=== PATIENT | female | born 1965 | race Caucasian/White ===

== ENCOUNTER 2018-03-01 06:47 | Day surgery (SDC) | payer OTHER ==
--- NOTE | 2018-02-20 20:37 | HP ---
HISTORY AND PHYSICAL: DATE OF ADMISSION/SURGERY: 03/01/18 SURGEON: Elaina Murray MD * (DICTATED BY TERESA LYLE) PROCEDURE: Left knee arthroscopy with partial meniscectomy, possible chondroplasty, possible synovectomy. CHIEF COMPLAINT: Left knee pain. HISTORY OF PRESENT ILLNESS: Ms. Connolly is a 52-year-old female with complaints of left knee pain. An MRI confirms a medial meniscus tear and she has elected to proceed with left knee arthroscopy. PAST MEDICAL HISTORY: GERD, hypertension, asthma, and breast cancer. PAST SURGICAL HISTORY: Hysterectomy, lumpectomy, mastectomy, and D and C. CURRENT MEDICATIONS: 1. Iron. 2. Triamterene/hydrochlorothiazide 37.5/25 mg daily. 3. Omeprazole 40 mg daily. 4. Atenolol 50 mg daily. 5. Vitamin D2. 6. Desloratadine 5 mg daily. 7. Montelukast sodium 10 mg daily. ALLERGIES: No known drug allergies. FAMILY HISTORY: Diabetes and bladder cancer. SOCIAL HISTORY: A 52-year-old female, lives with her and daughter. She does not smoke, use drugs or alcohol. REVIEW OF SYSTEMS: A complete 14-point review of systems was reviewed with the patient. It was positive for a thyroid goiter, GERD, and asthma. PHYSICAL EXAMINATION GENERAL: She is well developed, well nourished, in no acute distress. VITAL SIGNS: She stands 5 feet 7 inches tall, weighs 132 pounds. Her blood pressure is 116/70, and heart rate is 70. HEENT: Normocephalic, atraumatic. NECK: Supple. No palpable lymph nodes. PULMONARY: The lungs are clear to auscultation bilaterally. CARDIO: Regular rate and rhythm. Strong S1, S2. ABDOMEN: Soft, nontender, and nondistended. MUSCULOSKELETAL: Left lower extremity: The skin is intact. There are no open wounds or abrasions. There is a moderate joint effusion, some tenderness over the medial joint line, positive Denise's, positive Apley's. Negative Bryan. 2+ dorsalis pedis pulses. She has intact sensation and her lower extremity muscle group strengths are intact at 5/5. Range of motion is 5 to 110 degrees of flexion. NEUROLOGICAL: She is alert and oriented x3. ASSESSMENT AND PLAN: Ms. Connolly is a 52-year-old female with complaints of left knee pain. An MRI confirms a medial meniscus tear and she has elected to proceed with left knee arthroscopy with partial meniscectomy, possible chondroplasty, possible synovectomy. The surgery is scheduled for 03/01/[address] Murray discussed the risks and benefits of the surgery at today's visit and all of her questions were answered. She will follow up with Dr. Murray 2 weeks after the surgery. TERESA LYLE [id number]/[facility] #: [id number] DARBY
[~2018-03-01 06:47] MED LIST: Buffered Lidocaine 0.9% SYRIN* 5 ML/SYR SYRINGE INTRADERM ONE; Dexamethasone IV* 4 MG/ML 1 ML (4 MG) IV SLOW PU ONE; Famotidine IV* 10 MG/ML 2 ML (20 mg) IV ONE
[2018-03-01] MEDS ORDERED: methylPREDNISolone ACETATE 80* 80 MG/ML 1 ML VIAL ONE (06:59)
[2018-03-01] MEDS ORDERED: EPINEPHRINE 1 MG/ML 1 ML VIAL ONE ×2 (06:59→08:48)
[2018-03-01] MEDS ORDERED: Bupivacaine 0.25% SDV PF* 10 ML VIAL INJ ONE (06:59)
[2018-03-01] MEDS ORDERED: Dexamethasone IV* 4 MG/ML 1 ML (4 MG) ONE (07:08)
[2018-03-01] MEDS ORDERED: Famotidine IV* 10 MG/ML 2 ML (20 mg) ONE (07:08)
[2018-03-01] MEDS ORDERED: ceFAZolin 2 GM in NS PREMIX(*) 2 GM/100 ML BAG IVPB ONE (07:09)
[2018-03-01] MEDS ORDERED: Midazolam* 1 MG/ML 5 ML VIAL (5 MG) ONE (07:44)
[2018-03-01] MEDS ORDERED: Phenylephrine INJ* 10 MG/ML 1 ML VIAL (10 MG) ONE (07:44)
[2018-03-01] MEDS ORDERED: Propofol* 10 MG/ML 20 ML BTL IV PUSH ONE (07:44)
[2018-03-01] MEDS ORDERED: Ondansetron INJ* 2 MG/ML VIAL ONE (07:44)
[2018-03-01] MEDS ORDERED: Ketorolac INJ* 30 MG/ML 1 ML VIAL ONE (07:44)
[2018-03-01] MEDS ORDERED: Chloroprocaine 2%* 20 ML VIAL ONE (07:45)
[2018-03-01] MEDS ORDERED: Lidocaine 2% PF * 5 ML VIAL ONE (08:25)
[2018-03-01] MEDS ORDERED: Ondansetron INJ* 2 MG/ML VIAL IV PRN (08:48)
[2018-03-01] MEDS ORDERED: Scopolamine 1.5 mg* PATCH TRANSDERM PRN (08:48)
[2018-03-01] MEDS ORDERED: HYDROmorphone INJ1* 1 MG/ML SYRINGE IV PRN (08:48)
[2018-03-01] MEDS ORDERED: Naloxone* 0.4 MG/ML 1 ML VIAL IV PRN (08:48)
[2018-03-01] MEDS ORDERED: oxyCODONE/Acetamin 5/325 MG* TAB PO PRN (08:48)
[2018-03-01] MEDS ORDERED: DiMENhydriNATE IV* 50 MG/ML VIAL IV PUSH PRN (08:48)
[2018-03-01] MEDS ORDERED: fentaNYL* 50 MCG/ML 2 ML VIAL (100 MCG VIAL) ONE ×2 (09:52→10:02)
[2018-03-01] MEDS: fentaNYL* 50 MCG/ML 2 ML VIAL (100 MCG VIAL) IV PRN ×3 (09:53→10:11)
[2018-03-01] MEDS ORDERED: oxyCODONE/Acetamin 5/325 MG* TAB ONE (10:03)
[2018-03-01 15:19] VITALS: BP 146/98
--- NOTE | 2018-03-02 16:25 | OP ---
AMENDED REPORT NOW INCLUDES DATE OF SURGERY AND CORRECTED DATE OF DATE OF OPERATION: 03/01/18. DATE OF : 65 SURGEON: Elaina Murray MD. HAY BALER: TERESA Shultz. Ms. Melara did help throughout the procedure with preparation of the leg, wound retraction, manipulation of the knee, and wound closure. ANESTHESIOLOGIST: Dr. Chaudhry. ANESTHESIA: General. PRE-OP DIAGNOSIS: Left knee lateral meniscal tear and [id number]-[id number] osteoarthritis. POST-OP DIAGNOSIS: Left knee lateral meniscal tear, medial meniscus tear, severe degenerative osteoarthritis. OPERATIVE PROCEDURE: Left knee arthroscopy with partial medial meniscectomy and partial lateral meniscectomy and lateral compartment chondroplasty. ESTIMATED BLOOD LOSS: Less than 25 cc. COMPLICATIONS: None. SPECIMEN: None. BRIEF HISTORY/INDICATION: Ms. Connolly is a 52-year-old female who developed acute on chronic knee pain in December. She developed mechanical symptoms. She had known arthritis but MRI was ordered was because of the mechanical symptoms and increase in pain. Meniscal tear of the lateral meniscus was noted. The patient failed conservative treatment. She wished to proceed with left knee arthroscopy with partial meniscectomy, possible chondroplasty, possible synovectomy. Informed consent was obtained from the patient. She understood the risk of surgery included, but were not limited to bleeding, infection, damage to nearby structures, continued pain, need for further surgery, stroke, heart attack, blood clot and . She wished to proceed. INTRAOPERATIVE FINDINGS: Intraoperatively, the patient was noted to have displaced degenerative type tear of the anterior meniscus with displacement into the joint of the anterior medial meniscus. This was displaced into the joint. She was found to have a complex tear involving a parrot peak type tear in the posterior two-thirds of the lateral meniscus. This involved the white- red zone mainly and some red-red zone. She was noted to have a grade 3 and 4 Outerbridge cartilage changes in the lateral and patellofemoral compartment with a significant amount of exposed subchondral bone and complete lack of cartilage in the lateral compartment. She has significant osteophytes noted in the patellofemoral compartment as well. DESCRIPTION OF PROCEDURE: Ms. Connolly was identified in the preanesthesia unit. Her left lower extremity was marked as the correct operative side. Informed consent was signed and placed in the chart. The patient was taken to the operating room and placed under general anesthesia. Left lower extremity was prepped and draped in the usual sterile fashion. Preop time-out was made to correctly identify the patient's side and site. Appropriate perioperative antibiotics were given within 1 hour of incision. A 0.5 cm standard anterolateral portal incision was made with a 15 blade, carried down to the capsule. Trocar was introduced. As soon as the light and water sources were turned on, there was immediate visualization of the suprapatellar pouch. Suprapatellar pouch showed no significant abnormalities. There was a significant osteophyte in the patellofemoral compartment. There were grade 3 and 4 Outerbridge cartilage changes in the patellofemoral compartment. Medial gutters showed loose body or plica. Medial compartment showed grade 2 cartilage changes and a degenerative, radial type tear in the anterior portion of the medial meniscus. This was displaced anteriorly into the joint. ACL and PCL appeared to be intact. The knee was placed in figure-of -four position. There was a complex, severe tear of the lateral meniscus involving the posterior two-thirds. This was a parrot peak type tear displaced into the joint. There was exposed subchondral bone along the majority of the lateral femoral condyle and tibial plateau. These were grade 3 and 4 Outerbridge cartilage changes. Lateral gutter showed no loose body or plica. Under direct visualization, a medial portal incision was made with a 10 blade. A probe was introduced and a second tour of the knee joint was performed. No additional findings were noted. A shaver and straight biter were used perform partial medial meniscectomy anteriorly and mainly in the white-red zone. A smooth border of the medial meniscus was obtained. The knee was then placed in a [id number] position. Any cartilage flaps were carefully smoothed using radiofrequency ablation wand and shaver. A shaver and straight biter were then used to perform partial lateral meniscectomy until a smooth border meniscus was obtained. This was in the white- red zone. A smooth border was noted and the probe was used to ensure there were no hidden flaps or tears. The knee was copiously irrigated with sterile saline. The instruments were removed. Incisions were closed using 3-0 nylon suture. Intraarticular injection of 80 mg Depo-Medrol and 6 cc of 0.25% Marcaine was placed in the knee joint. The patient's incisions were covered using Xeroform, 4x4s, and Webril. The patient's anesthesia was reversed without difficulty. She was taken to the PACU in stable condition. Intended weightbearing will be weightbearing as tolerated. Intended DVT prophylaxis will be aspirin. [id number]/[facility] #: [id number] MTDD
== END 2018-03-01 11:10 | disposition home or self-care (01) ==
LOC: OR 06:47
PROVIDERS: ATTEND Orthopaedic Surgery Adult Reconstructive Orthopaedic Surgery
DX: S83.282A Other tear of lateral meniscus, current injury, left knee, initial encounter (principal); S83.242A Other tear of medial meniscus, current injury, left knee, initial encounter; X58.XXXA Exposure to other specified factors, initial encounter; Y92.9 Unspecified place or not applicable; E11.9 Type 2 diabetes mellitus without complications; K21.9 Gastro-esophageal reflux disease without esophagitis; J45.909 Unspecified asthma, uncomplicated; Z85.3 Personal history of malignant neoplasm of breast; E66.9 Obesity, unspecified
CPT/HCPCS: A9270-GY; J0690; J1040; J1100; J1885; J2250; J2400; J2405; J2704; J3010; J3490

== ENCOUNTER 2018-08-30 06:45 | Inpatient (IN) | payer OTHER ==
--- NOTE | 2018-08-17 13:23 | HP ---
HISTORY AND PHYSICAL: DATE OF SURGERY: 08/30/18 DATE OF OFFICE VISIT: 08/17/18 SURGEON: Elaina Murray MD * (DICTATED BY TERESA LYLE) PROCEDURE: Left total knee arthroplasty. CHIEF COMPLAINT: Left knee pain. HISTORY OF PRESENT ILLNESS: Ms. Connolly is a 53-year-old female with continued complaints of left knee pain. She has failed conservative treatment and elected to proceed with a left total knee arthroplasty. PAST MEDICAL HISTORY: 1. Asthma. 2. Breast cancer. 3. GERD. 4. Hypertension. 5. Depression. 6. Anxiety. 7. Thyroid goiter. PAST SURGICAL HISTORY: 1. Hysterectomy. 2. Mastectomy. 3. Left knee arthroscopy. CURRENT MEDICATIONS: 1. Tramadol 50 mg every 6 hours as needed. 2. Montelukast sodium 10 mg a day. 3. Desloratadine 5 mg a day. 4. Vitamin D 50,000 units a month. 5. Atenolol 50 mg daily. 6. Omeprazole 40 mg a day. 7. Triamterene/hydrochlorothiazide 37.5/25 mg a day. 8. Iron 65 mg a day. 9. Albuterol as needed. 10. Tums as needed. ALLERGIES: No known drug allergies. FAMILY HISTORY: Diabetes, cancer, and hypertension. SOCIAL HISTORY: She is a 53-year-old female. She lives with her . She does not smoke, use drugs, or alcohol. REVIEW OF SYSTEMS: A complete 14-point review of systems was reviewed with the patient and was positive for GERD, asthma, and a thyroid goiter. She denies history of DVT, PE, hepatitis, HIV, or anesthesia problems. PHYSICAL EXAMINATION GENERAL: She is well developed, well nourished, in no acute distress. VITAL SIGNS: She stands 5 feet 7 inches tall, weighs 230 pounds. Blood pressure is 148/90, and heart rate 60. HEENT: Normocephalic, atraumatic. NECK: Supple. No palpable lymph nodes. PULMONARY: Lungs are clear to auscultation bilaterally. CARDIAC: Regular rate and rhythm. Strong S1 and S2. ABDOMEN: Soft, nontender, and nondistended. MUSCULOSKELETAL: Left lower extremity, the skin is intact. There is no open wound or abrasion. There is a moderate effusion to the left knee. There is a 15 degrees valgus deformity with MCL laxity, this can be corrected by 5 degrees. Range of motion is 10 to 120 degrees of flexion with patellofemoral crepitus. She has 2+ dorsalis pedis pulses. Intact sensation. Her lower extremity muscle group strengths are intact at 5/5. NEUROLOGIC: She is alert and oriented x3. ASSESSMENT AND PLAN: Ms. Connolly is a 53-year-old female with end-stage osteoarthritis of the left knee. She has failed conservative treatment and elected to proceed with a left total knee arthroplasty. The surgery is scheduled for 08/30/[address] Murray discussed the risks and benefits of the surgery on today's visit and all of her questions were answered. She will follow up with Dr. Murray 2 weeks after the surgery. TERESA LYLE [id number]/[facility] #: [id number] DARBY
[~2018-08-30 06:45] MED LIST changes: +Acetaminophen TAB* 325 MG PO ONE; -Buffered Lidocaine 0.9% SYRIN* 5 ML/SYR SYRINGE INTRADERM ONE; +Buffered Lidocaine 1% SYRIN* 1 ML/SYRINGE INTRADERM ONE; -Famotidine IV* 10 MG/ML 2 ML (20 mg) IV ONE; +Famotidine TAB* 20 MG PO ONE; +Gabapentin CAP(*) 300 MG PO ONE; +Lactated Ringers 1000 ML Bag* 1,000 ML IV SCH; +Tranexamic Acid 1,000 MG in NS 0.9% 50 ML* (outpatient use) IV SCH; +celeCOXIB CAP* 200 MG PO ONE
[2018-08-30] MEDS ORDERED: ROPIVACAINE 5 MG/ML 30 ML BTL (0.5%) ONE ×2 (06:55→07:58)
[2018-08-30] MEDS ORDERED: Gabapentin CAP(*) 300 MG ONE (07:08)
[2018-08-30] MEDS ORDERED: Dexamethasone IV* 4 MG/ML 1 ML (4 MG) ONE (07:08)
[2018-08-30] MEDS ORDERED: celeCOXIB CAP* 100 MG ONE (07:08)
[2018-08-30] MEDS ORDERED: ceFAZolin 2 GM in NS PREMIX(*) 2 GM/100 ML BAG IVPB ONE (07:09)
[2018-08-30] MEDS ORDERED: Famotidine IV* 10 MG/ML 2 ML (20 mg) ONE (07:09)
[2018-08-30] MEDS ORDERED: Acetaminophen TAB* 325 MG ONE (07:09)
[2018-08-30] MEDS ORDERED: Famotidine TAB* 20 MG ONE (07:28)
[2018-08-30] MEDS ORDERED: hydrALAZINE IV* 20 MG/ML VIAL ONE (07:32)
[2018-08-30] MEDS ORDERED: Levalbuterol 0.63MG/3ML NEB* UNIT OF USE INH ONE ×2 (07:39→07:41)
[2018-08-30] MEDS ORDERED: hydrALAZINE IV* 20 MG/ML VIAL IV SLOW PU ONE (07:41)
[2018-08-30] MEDS ORDERED: Midazolam* 1 MG/ML 2 ML VIAL (2 MG) ONE (07:48)
[2018-08-30] MEDS ORDERED: fentaNYL* 50 MCG/ML 2 ML VIAL (100 MCG VIAL) ONE (07:48)
[2018-08-30] MEDS ORDERED: Propofol* 10 MG/ML 20 ML BTL ONE ×2 (07:48→09:32)
[2018-08-30] MEDS ORDERED: Lidocaine 1%* 5 ML VIAL ONE (07:58)
[2018-08-30] MEDS ORDERED: Propofol* 500 MG/50 ML BTL ONE (08:38)
[2018-08-30] MEDS ORDERED: KETAMINE HCL* 50 MG/ML 10 ML VIAL ONE (08:47)
[2018-08-30] MEDS ORDERED: oxyCODONE TAB* 5 MG TAB PO PRN (09:19)
[2018-08-30] MEDS ORDERED: HYDROmorphone INJ1* 1 MG/ML SYRINGE IV PRN (09:19)
[2018-08-30] MEDS ORDERED: Naloxone* 0.4 MG/ML 1 ML VIAL IV PRN (09:19)
[2018-08-30] MEDS ORDERED: Ondansetron INJ* 2 MG/ML VIAL IV PRN ×2 (09:19→10:43)
[2018-08-30] MEDS ORDERED: Acetaminophen IV 1GM/100ML * 1,000 MG/100 ML VIAL IVPB ONE (09:19)
[2018-08-30] MEDS ORDERED: DiMENhydriNATE IV* 50 MG/ML VIAL IV PUSH PRN (09:19)
[2018-08-30] MEDS ORDERED: Ketorolac INJ* 30 MG/ML 1 ML VIAL IV PRN (09:19)
[2018-08-30] MEDS ORDERED: fentaNYL* 50 MCG/ML 2 ML VIAL (100 MCG VIAL) IV PRN (09:19)
[2018-08-30] MEDS ORDERED: Ondansetron TAB* 4 MG PO PRN (10:43)
[2018-08-30] MEDS ORDERED: Polyethylene Glycol 3350* 17 GM PACKET PO PRN (10:43)
[2018-08-30] MEDS ORDERED: Bisacodyl SUPP* 10 MG SUPP PR PRN (10:43)
[2018-08-30] MEDS ORDERED: Magnesium Hydroxide LIQ* 30 ML UDC PO PRN (10:43)
[2018-08-30] MEDS ORDERED: Morphine INJ* 2 MG/ML 1 ML SYRINGE (TWO MG - NEW SYRINGE VERSION) IV PRN (10:43)
[2018-08-30] MEDS ORDERED: traMADol TAB* 50 MG PO PRN (10:43)
[2018-08-30] MEDS ORDERED: Cyclobenzaprine TAB* 10 MG PO PRN (10:43)
[2018-08-30] MEDS ORDERED: oxyCODONE/Acetamin 5/325 MG* TAB PO PRN (10:43)
[2018-08-30] MEDS ORDERED: diPHENhydraMINE IV* 50 MG/ML 1 ml VIAL (BENADRYL) IV PRN (10:43)
[2018-08-30] MEDS: Lactated Ringers 1000 ML Bag* 1,000 ML IV SCH ×2 (13:26→23:42)
--- NOTE | 2018-08-30 13:45 | PN ---
Progress Note - Progress Note Date of Service: 08/30/18 Note: Patient seen at bedside, POD 0 LTK, She is alert and oriented. Feeling a little dizzy. Sensation intact to light touch LLE. +DF left ankle.
[2018-08-30] MEDS: Acetaminophen TAB* 325 MG PO SCH ×2 (14:18→22:14)
[2018-08-30] MEDS: oxyCODONE TAB* 5 MG TAB PO PRN ×2 (15:33→20:29)
[2018-08-30] MEDS: ceFAZolin 1 GM ADVAN(*) 1 GM in NS 0.9% 50 ML* 50 ML IVPB SCH (17:03)
--- NOTE | 2018-08-30 20:23 | CONS ---
CONSULTATION REPORT: DATE OF CONSULT: 08/30/18 REQUESTING PHYSICIAN: Dr. Elaina Murray. REASON FOR CONSULT: Co-management of chronic medical conditions. HISTORY OF PRESENT ILLNESS: Leeanna Connolly is a 53-year-old female with past medical history significant for hypertension and asthma who failed outpatient conservative treatment for her left knee osteoarthritis and elected to proceed with left total knee arthroplasty. She had surgery this morning and is feeling slightly nauseous today at the time of visit. She, otherwise, is feeling well. Denies chest pain, shortness of breath, and headache. The patient denies constipation, diarrhea, and abdominal pain. She has not vomited. She is currently eating and is willing to utilize Zofran to manage her nausea. PAST MEDICAL HISTORY: 1. Hypertension. 2. Asthma. 3. GERD. 4. Anxiety. 5. Depression. 6. Thyroid goiter. 7. Breast cancer, status post mastectomy. PAST SURGICAL HISTORY: 1. Hysterectomy. 2. Mastectomy. 3. Left knee arthroscopy and total left knee arthroplasty. FAMILY HISTORY: The patient's father is living at age 75; he has history of bladder cancer, diabetes, and hypertension. The patient's mother is living at age 75; she has history of appendiceal cancer, diabetes, hypertension. She has 2 brothers with hypertension. SOCIAL HISTORY: The patient lives with her . She does not smoke and was never a smoker. She denies the use of illicit drugs and alcohol. ALLERGIES: No known drug allergies. HOME MEDICATIONS: 1. Montelukast 10 mg a day. 2. Desloratadine 5 mg a day. 3. Vitamin D 50,000 units a month. 4. Atenolol 50 mg a day. 5. Omeprazole 40 mg a day. 6. Triamterene/hydrochlorothiazide 37.5 mg/25 mg a day. 7. Iron 65 mg a day. 8. Albuterol inhaler p.r.n. 9. Tums p.r.n. REVIEW OF SYSTEMS: An 11-system review of systems was completed and all pertinent positives are listed in the HPI. All others are negative. PHYSICAL EXAM: General: The patient is sitting upright in the hospital bed, appearing comfortable and in no acute distress. HEENT: Head is normocephalic and atraumatic. Eyes are PERRL and sclerae anicteric. Mouth: Mucous membranes are moist. Neck is supple. Range of motion is within normal limits. Cardiac: Regular rate and rhythm. No murmurs, rubs, or gallops. Respiratory : Lungs with minimum crackles in bilateral bases. Otherwise, lungs are clear. Abdomen: Soft, nontender, nondistended. Extremities: Left knee in wraps and brace. There is no clubbing, edema. Neurologic: The patient is alert and oriented x3. No focal deficits. Psych: mood and affect are euthymic DIAGNOSTIC STUDIES/LAB DATA: Glucose on 08/30/18 is 123. ASSESSMENT AND PLAN: The patient is a 53-year-old white female with significant past medical history of hypertension, asthma, gastroesophageal reflux disease who is status post left total knee arthroplasty. Hospital medicine is consulted for co-management of chronic medical conditions. 1. Hypertension. The patient's blood pressure has been stable since surgery. Continue home atenolol and triamterene/hydrochlorothiazide. Continue to monitor blood pressure. 2. Asthma. Continue home montelukast and home albuterol p.r.n. 3. Gastroesophageal reflux disease. Continue omeprazole. 4. Depression and anxiety are stable. The patient does not take home medicine. No psychiatric concerns. 5. Thyroid goiter is stable. The patient does not take medicine. It is likely subclinical hypothyroidism. 6. DVT prophylaxis. Per Orthopedic Surgery. 7. Disposition. Per Orthopedic Surgery. TIME SPENT: Time spent on this consultation was approximately 30 minutes. Approximately half of this was spent at bedside. My attending physician, Dr. Dai Waterman, agrees with this assessment and plan. Thank you for allowing us to participate in the care of this patient. We will follow along during this patient's admission. TERESA SAINI [id number]/[facility] #: [id number] DARBY
[2018-08-30] MEDS: Magnesium Hydroxide LIQ* 30 ML UDC PO SCH (20:30)
[2018-08-30] MEDS: Docusate CAP* 100 MG PO SCH (20:30)
--- NOTE | 2018-08-30 20:56 | OP ---
DATE OF OPERATION: 08/30/18 - ROOM #342 DATE OF : 65 ATTENDING SURGEON: Elaina Murray MD. FINANCIAL SALES CONSULTANT: TERESA Shultz. Ms. Melara did help throughout the procedure with preparation of the leg, wound retraction, manipulation of the knee, and wound closure. ANESTHESIOLOGIST: Dr. Song. ANESTHESIA: Spinal. PRE-OP DIAGNOSIS: Severe end-stage degenerative osteoarthritis of the left knee joint. POST-OP DIAGNOSIS: Severe end-stage degenerative osteoarthritis of the left knee joint. OPERATIVE PROCEDURE: Left total knee arthroplasty. TOURNIQUET TIME: 46 minutes. COMPLICATIONS: None. ESTIMATED BLOOD LOSS: 200 cc. SPECIMEN: Bone and cartilage from the left knee joint sent to Pathology. HARDWARE USED: This is cemented Feldman [employer] Nephew total knee arthroplasty hardware. For the femur, a size left 5 narrow posterior stabilized Legion Oxinium femoral component. For the tibia, size 3 left Tiffanie II tibial baseplate. For the insert, a 13 mm posterior stabilized articular insert and for the patella, a 29 mm 3-peg all-poly patella 7.5 thickness. BRIEF HISTORY/INDICATION: Ms. Connolly is a 53-year-old female who has suffered with left knee pain for many years. She failed conservative treatment with antiinflammatories, pain medications, intraarticular injections, physical therapy, brace wear, and arthroscopy. Radiographs showed [id number] arthritis and she started to develop severe valgus deformity. Due to continued pain and decreased quality of life, she elected to undergo left total knee arthroplasty. Informed consent was obtained from the patient. She understood the risks of surgery included, but were not limited to, bleeding, infection, damage to nearby structures, continued pain, need for further surgery, intraoperative fracture, nerve palsy, hardware failure or loosening, knee stiffness, loss of motion, stroke, heart attack, blood clot, and . She wished to proceed. INTRAOPERATIVE FINDINGS: Intraoperatively, the patient was noted to have preop valgus deformity of 15 degrees. This was corrected to anatomic. She was noted to have some MCL laxity that appeared to be chronic. She was noted to have severe end- stage arthritis with complete cartilage loss in the lateral and patellar compartments. DESCRIPTION OF PROCEDURE: Ms. Connolly was identified in the preanesthesia unit. Her left lower extremity was marked as the correct operative site. Informed consent was signed and placed in the chart. The patient was taken to the operating room and placed under anesthesia. A Estrella catheter was placed. Tourniquet was placed on the left thigh. Left lower extremity was prepped and draped in the usual sterile fashion. A preop time-out was made to correctly identify the patient, side, and site. Appropriate perioperative antibiotics were given within 1 hour of incision. Tourniquet was inflated and total tourniquet time for this procedure was 46 minutes. A midline incision was made with a 10-blade and carried down to the extensor mechanism. A new 10-blade was used to make a standard medial parapatellar arthrotomy. Patella was subluxed laterally. Electrocautery was used to subperiosteally elevate soft tissue off the superomedial tibia to the midsagittal plane. The knee was flexed up. The anterior horn of the lateral meniscus and ACL were sharply released. A drill was used to enter the distal femur. Intramedullary distal femoral cutting guide was pinned on the distal femur. Oscillating saw was used to make the distal femoral cut. Next, the external rotation guide was pinned on the distal femur. The distal femur was sized to a size 5. Size 5 multi-cutting jig was pinned on the distal femur. Oscillating saw was used to make the appropriate chamfer cuts. PCL was completely released. Tibia was subluxed anteriorly. Extramedullary tibial cutting guide was pinned on the proximal tibia. Oscillating saw was used to make the proximal tibial cut perpendicular to the mechanical axis of the tibia. The bone was carefully removed. The knee was brought out into full extension. The knee had full extension with good medial and lateral ligament balancing. The patient's baseline MCL laxity was noted. The curved osteotome was used to remove any posterior osteophytes. Tibial tray and drop vanesa were placed and confirmed a satisfactory tibial cut. A size 5 left narrow femoral trial was impacted onto the distal femur and had excellent fit and stability. The box for the posterior stabilized implant was prepared using a reamer and box-cut osteotome. Size 3 tibial tray trial with an 11 mm insert trial was placed and the knee was taken through a range of motion. The knee had full extension to 130 degrees of flexion with satisfactory patellofemoral tracking. The patella was everted; 7 mm of patellar bone and cartilage were carefully removed using an oscillating saw. Patella was sized to a size 29. Three peg holes were drilled through the size 29 guide. Size 29 trial patella with 7.5 thickness was placed and the knee was taken through a range of motion. There was satisfactory patellofemoral tracking. All trials were carefully removed. The tibia was subluxed anteriorly and sized to a size 3. Proximal tibia was prepared using a size 3 keel punch. All bony cut surfaces were copiously irrigated with sterile saline and dried. Final implants were cemented into place starting with the tibia, followed by the femur and last the patella. A 13 mm insert trial was placed while the knee was brought out into full extension. Tourniquet was turned down. Electrocautery was used to obtain meticulous hemostasis. The knee was copiously irrigated with sterile saline. Once the cement was fully cured, the insert trial was removed. Any excess cement was removed from around the capsule and hardware. Final insert chosen was a 13 mm posterior stabilized articular insert, size 3 to 4. This was locked into position on the tibial tray. Stability of the insert was checked and rechecked and noted to be stable. The extensor mechanism was closed using interrupted #1 Vicryl. The rest of the incision was closed in a layered fashion using 0 and 2-0 Vicryls. Skin was closed using running 3-0 nylon suture. Sterile Xeroform, 4x4s, and Webril were used to cover the incision. Trent wrap and cold pack were placed over this. The patient' s anesthesia was reversed without difficulty. She was taken to the PACU in stable condition. Intended weightbearing will be weightbearing as tolerated. Intended DVT prophylaxis will be Eliquis. [id number]/[facility] #: [id number] [facility]
[2018-08-31] MEDS: ceFAZolin 1 GM ADVAN(*) 1 GM in NS 0.9% 50 ML* 50 ML IVPB SCH ×2 (01:01→08:25)
[2018-08-31] MEDS: Acetaminophen TAB* 325 MG PO SCH ×3 (05:53→22:02)
[2018-08-31] MEDS: oxyCODONE/Acetamin 5/325 MG* TAB PO PRN ×3 (05:53→15:28)
[2018-08-31 06:04] LABS: Hematocrit 34 % (33-41); Hemoglobin 11.4 g/dL (12.0-16.0); Mean Platelet Volume 9.4 fL (7.4-10.4); Platelet Count 172 10^3/uL (150-450)
[2018-08-31 06:36] LABS: BUN/Creatinine Ratio 24.2 (8-20); Calcium 8.9 mg/dL (8.6-10.3); EGFR African American 113.4 (>60); EGFR Non-African American 93.7 (>60); Potassium 3.4 mmol/L (3.5-5.0)
[2018-08-31] MEDS: Potassium Chlor TAB* 20 MEQ TAB.ER PO SCH ×2 (08:25→20:38)
[2018-08-31] MEDS: Pantoprazole TAB * 40 MG TAB PO SCH (08:25)
[2018-08-31] MEDS: Apixaban* 2.5 MG TAB PO SCH ×2 (08:25→20:38)
[2018-08-31] MEDS: oxyCODONE TAB* 5 MG TAB PO PRN ×3 (08:25→18:18)
[2018-08-31] MEDS: Cetirizine* 10 MG TAB PO SCH (08:25)
[2018-08-31] MEDS: Triamterene/HCTZ 37.5-25 MG* CAP PO SCH (08:25)
[2018-08-31] MEDS: Atenolol TAB* 50 MG PO SCH (08:25)
[2018-08-31] MEDS: Docusate CAP* 100 MG PO SCH ×2 (08:28→20:38)
[2018-08-31] MEDS: Magnesium Hydroxide LIQ* 30 ML UDC PO SCH ×2 (09:14→20:38)
--- NOTE | 2018-08-31 11:26 | PN ---
Progress Note - Progress Note Date of Service: 08/31/18 SOAP: Subjective: []Patient seen OOB in chair. Feeling wiped out but denies SOB, CP, palpitations. Hopes to go home tomorrow. Objective: [] Vital Signs Temp 97.9 F 08/31/18 07:42 Pulse 63 08/31/18 07:42 Resp 18 08/31/18 09:52 BP 133/71 08/31/18 07:42 Pulse Ox 96 08/31/18 08:00 Intake & Output 08/30/18 08/31/18 08/31/18 18:59 06:59 18:59 Intake Total 1800 2190 Output Total 675 300 Balance 1125 1890 Weight 228 lb 9.6 oz Intake: IV Fluids 1700 990 LR 990 lr 1700 Oral 100 900 Estrella Irrigate Amount 300 Output: Estrella 425 300 Estimated Blood Loss 250 Laboratory Results - last 24 hr 08/31/18 08/31/18 05:40 05:40 Hgb 11.4 L Hct 34 Plt Count 172 MPV 9.4 Sodium 139 Potassium 3.4 L Chloride 106 Carbon Dioxide 28 Anion Gap 5 BUN 16 Creatinine 0.66 Est GFR ( Amer) 113.4 Est GFR (Non-Af Amer) 93.7 BUN/Creatinine Ratio 24.2 H Glucose 166 H Calcium 8.9 Left knee dressings are dry and intact calf NT +DF left ankle sensation and circulation intact distally Assessment: []s/p LTK POD #1 Plan: []PT/OT WBAT LLE Eliquis 2.5 BID DVT proph Dressing change 09/01 Possible d/c home 09/01
--- NOTE | 2018-08-31 17:26 | PN ---
Subjective Date of Service: 08/31/18 Interval History: Pt is feeling well. She states the pain in her knee currently is worse than it has been but overall her pain has been adequately controlled. No SOB. No BM yet. Objective Active Medications: Acetaminophen (Tylenol Tab*) 975 mg PO Q8HR [facility] Last Admin: 08/31/18 12:55 Dose: Not Given Apixaban (Eliquis*) 2.5 mg PO BID [facility] Last Admin: 08/31/18 08:25 Dose: 2.5 mg Atenolol (Tenormin Tab*) 50 mg PO QAM [facility] Last Admin: 08/31/18 08:25 Dose: 50 mg Bisacodyl (Dulcolax Supp*) [address] DAILY PRN PRN Reason: constipation Cetirizine HCl (Zyrtec*) 10 mg PO QAM [facility]; Protocol Last Admin: 08/31/18 08:25 Dose: 10 mg Cyclobenzaprine HCl (Flexeril Tab*) 10 mg PO TID PRN PRN Reason: SPASMS Diphenhydramine HCl (Benadryl Iv*) 12.5 mg IV Q6H PRN PRN Reason: PRURITIS Docusate Sodium (Colace Cap*) 100 mg PO BID [facility] Last Admin: 08/31/18 08:28 Dose: 100 mg Lactated Ringer's (Lactated Ringers 1000 Ml Bag*) 1,000 mls @ 100 mls/hr IV PER RATE [facility] Last Admin: 08/30/18 23:42 Dose: 100 mls/hr Lactulose (Lactulose*) 30 ml PO Q6H PRN PRN Reason: constipation Magnesium Hydroxide (Milk Of Magnesia Liq*) 30 ml PO BID [facility] Last Admin: 08/31/18 09:14 Dose: 30 ml Magnesium Hydroxide (Milk Of Magnesia Liq*) 30 ml PO Q6H PRN PRN Reason: constipation Morphine Sulfate (Morphine Inj (Syringe))*) 2 mg IV Q2H PRN PRN Reason: PAIN Ondansetron HCl (Zofran Inj*) 4 mg IV Q6H PRN PRN Reason: nausea Last Admin: 08/30/18 15:33 Dose: 4 mg Ondansetron HCl (Zofran Tab*) 4 mg PO Q6H PRN PRN Reason: NAUSEA Oxycodone HCl (Roxycodone Tab*) 10 mg PO Q4H PRN PRN Reason: SEVERE PAIN Last Admin: 08/31/18 13:35 Dose: 10 mg Oxycodone/Acetaminophen (Percocet 5/325 Tab*) 1 tab PO Q4H PRN PRN Reason: PAIN Last Admin: 08/30/18 14:19 Dose: 1 tab Oxycodone/Acetaminophen (Percocet 5/325 Tab*) 2 tab PO Q4H PRN PRN Reason: PAIN Last Admin: 08/31/18 15:28 Dose: 2 tab Pantoprazole Sodium (Protonix Tab*) [facility] [place] Last Admin: 08/31/18 08:25 Dose: 40 mg Polyethylene Glycol/Electrolytes (Miralax*) 17 gm PO DAILY PRN PRN Reason: Constipation Potassium Chloride (Klor Con Er Tab*) 20 meq PO BID [facility] Last Admin: 08/31/18 08:25 Dose: 20 meq Tramadol HCl (Ultram*) 50 mg PO Q6H PRN PRN Reason: PAIN Triamterene/HCTZ (Dyazide Cap*) 1 cap PO [facility] Last Admin: 08/31/18 08:25 Dose: 1 cap Vital Signs - 8 hr 08/31/18 08/31/18 08/31/18 09:52 11:21 12:55 Temperature 98.5 F Pulse Rate 68 Respiratory 18 16 16 Rate Blood Pressure 149/75 (mmHg) O2 Sat by Pulse 98 Oximetry 08/31/18 08/31/18 08/31/18 13:35 15:23 15:28 Temperature 98.4 F Pulse Rate 63 Respiratory 18 16 18 Rate Blood Pressure 154/81 (mmHg) O2 Sat by Pulse 96 Oximetry 08/31/18 15:30 Temperature Pulse Rate Respiratory Rate Blood Pressure (mmHg) O2 Sat by Pulse 96 Oximetry Oxygen Devices in Use Now: None Appearance: Middle aged female sitting up in a chair, NAD Eyes: No Scleral Icterus Ears/Nose/Mouth/Throat: Mucous Membranes Moist Respiratory: Symmetrical Chest Expansion and Respiratory Effort, Clear to Auscultation Cardiovascular: NL Sounds; No Murmurs; No JVD, RRR Abdominal: NL Sounds; No Tenderness; No Distention Extremities: No Clubbing, Cyanosis, - - incision not inspected by myself Skin: No Nodules or Sclerosis Neurological: Alert and Oriented x 3 Result Diagrams: 08/31/18 05:40 08/31/18 05:40 Assess/Plan/Problems-Billing Ms Connolly is a 53 yo F who has a h/o HTN who was admitted following an elective L TKR. - Patient Problems (1) Status post total left knee replacement Current Visit: Yes Status: Acute Code(s): Z96.652 - PRESENCE OF LEFT ARTIFICIAL KNEE JOINT SNOMED Code(s): 8226988561044 Comment: Management per orthopedics. Probable d/c home tomorrow. (2) HTN (hypertension) Current Visit: Yes Status: Acute Code(s): I10 - ESSENTIAL (PRIMARY) HYPERTENSION SNOMED Code(s): 35466673 Comment: BP generally has been under ok control. Will continue current regimen of triamterene/HCTZ and atenolol. Monitor the BP. K was slightly low this AM, started on BID KCl per ortho- will change so that she receives only 2 doses. Follow up BMP tomorrow and replace if needed. (3) Allergic rhinitis Current Visit: Yes Status: Acute Code(s): J30.9 - ALLERGIC RHINITIS, UNSPECIFIED SNOMED Code(s): 86758429 Comment: Continue singulair and zyrtec. (4) DVT prophylaxis Current Visit: Yes Status: Acute Code(s): PVX7359 - SNOMED Code(s): 341156507 Comment: ceferino (5) Full code status Current Visit: Yes Status: Acute Code(s): Z78.9 - OTHER SPECIFIED HEALTH STATUS SNOMED Code(s): 224673780
[2018-08-31] MEDS ORDERED: Montelukast Sodium TAB* 10 MG PO SCH (18:00)
[2018-09-01] MEDS: oxyCODONE/Acetamin 5/325 MG* TAB PO PRN ×2 (00:22→07:14)
[2018-09-01 05:55] LABS: Hematocrit 36 % (33-41); Hemoglobin 12.2 g/dL (12.0-16.0); Mean Platelet Volume 9.3 fL (7.4-10.4); Platelet Count 158 10^3/uL (150-450)
[2018-09-01] MEDS: Acetaminophen TAB* 325 MG PO SCH ×2 (07:14→14:45)
[2018-09-01] MEDS ORDERED: Potassium Chlor TAB* 20 MEQ TAB.ER PO ONE (08:00)
--- NOTE | 2018-09-01 08:31 | PN ---
Subjective Date of Service: 09/01/18 Interval History: Pt just had a Percocet and feels a little "loopy". Planing to possibly go home today Objective Active Medications: Acetaminophen (Tylenol Tab*) 975 mg PO Q8HR [facility] Last Admin: 09/01/18 07:14 Dose: Not Given Apixaban (Eliquis*) 2.5 mg PO BID [facility] Last Admin: 08/31/18 20:38 Dose: 2.5 mg Atenolol (Tenormin Tab*) [facility] Last Admin: 08/31/18 08:25 Dose: 50 mg Bisacodyl (Dulcolax Supp*) 10 mg [place] DAILY PRN PRN Reason: constipation Cetirizine HCl (Zyrtec*) 10 mg PO QAM [facility]; Protocol Last Admin: 08/31/18 08:25 Dose: 10 mg Cyclobenzaprine HCl (Flexeril Tab*) 10 mg PO TID PRN PRN Reason: SPASMS Diphenhydramine HCl (Benadryl Iv*) 12.5 mg IV Q6H PRN PRN Reason: PRURITIS Docusate Sodium (Colace Cap*) 100 mg PO BID [facility] Last Admin: 08/31/18 20:38 Dose: 100 mg Lactulose (Lactulose*) 30 ml PO Q6H PRN PRN Reason: constipation Magnesium Hydroxide (Milk Of Magnesia Liq*) 30 ml PO BID [facility] Last Admin: 08/31/18 20:38 Dose: 30 ml Magnesium Hydroxide (Milk Of Magnesia Liq*) 30 ml PO Q6H PRN PRN Reason: constipation Montelukast Sodium (Singulair Tab*) 10 mg PO QPM [facility] Last Admin: 08/31/18 18:18 Dose: 10 mg Morphine Sulfate (Morphine Inj (Syringe))*) 2 mg IV Q2H PRN PRN Reason: PAIN Ondansetron HCl (Zofran Inj*) 4 mg IV Q6H PRN PRN Reason: nausea Last Admin: 08/30/18 15:33 Dose: 4 mg Ondansetron HCl (Zofran Tab*) 4 mg PO Q6H PRN PRN Reason: NAUSEA Oxycodone HCl (Roxycodone Tab*) 10 mg PO Q4H PRN PRN Reason: SEVERE PAIN Last Admin: 08/31/18 18:18 Dose: 10 mg Oxycodone/Acetaminophen (Percocet 5/325 Tab*) 1 tab PO Q4H PRN PRN Reason: PAIN Last Admin: 08/30/18 14:19 Dose: 1 tab Oxycodone/Acetaminophen (Percocet 5/325 Tab*) 2 tab PO Q4H PRN PRN Reason: PAIN Last Admin: 09/01/18 07:14 Dose: 2 tab Pantoprazole Sodium (Protonix Tab*) 40 mg PO QAM [facility] Last Admin: 08/31/18 08:25 Dose: 40 mg Polyethylene Glycol/Electrolytes (Miralax*) 17 gm PO DAILY PRN PRN Reason: Constipation Tramadol HCl (Ultram*) 50 mg PO Q6H PRN PRN Reason: PAIN Triamterene/HCTZ (Dyazide Cap*) 1 cap PO [facility] Last Admin: 08/31/18 08:25 Dose: 1 cap Vital Signs - 8 hr 09/01/18 09/01/18 09/01/18 01:27 03:32 07:14 Temperature 98.6 F Pulse Rate 77 Respiratory 16 17 Rate Blood Pressure 148/70 (mmHg) O2 Sat by Pulse 96 95 Oximetry 09/01/18 07:15 Temperature Pulse Rate Respiratory 17 Rate Blood Pressure (mmHg) O2 Sat by Pulse Oximetry Oxygen Devices in Use Now: None Appearance: 53 yo F in nAD, aAOx3 Eyes: No Scleral Icterus, PERRLA Ears/Nose/Mouth/Throat: NL Teeth, Lips, Gums, Mucous Membranes Moist Neck: NL Appearance and Movements; NL JVP, Trachea Midline Respiratory: Symmetrical Chest Expansion and Respiratory Effort, Clear to Auscultation Cardiovascular: NL Sounds; No Murmurs; No JVD Lymphatic: No Cervical Adenopathy Extremities: No Clubbing, Cyanosis, - - trace b/l pedal edema L>R Skin: No Nodules or Sclerosis, - - Left post op knee in surgical dressings-not uncovered Neurological: Alert and Oriented x 3, NL Muscle Strength and Tone Result Diagrams: 09/01/18 05:26 08/31/18 05:40 Assess/Plan/Problems-Billing Ms Connolly is a 53 yo F who has a h/o HTN who was admitted following an elective L TKR. - Patient Problems (1) Status post total left knee replacement Comment: Management per orthopedics. (2) HTN (hypertension) Comment: continue current regimen of triamterene/HCTZ and atenolol. (3) DVT prophylaxis Comment: eliquis Status and Disposition: medicine consult
[2018-09-01] MEDS: Apixaban* 2.5 MG TAB PO SCH (09:03)
[2018-09-01] MEDS: Pantoprazole TAB * 40 MG TAB PO SCH (09:04)
[2018-09-01] MEDS: Triamterene/HCTZ 37.5-25 MG* CAP PO SCH (09:04)
[2018-09-01] MEDS: Cetirizine* 10 MG TAB PO SCH (09:04)
[2018-09-01] MEDS: Atenolol TAB* 50 MG PO SCH (09:04)
[2018-09-01] MEDS: Docusate CAP* 100 MG PO SCH (09:04)
[2018-09-01] MEDS: Magnesium Hydroxide LIQ* 30 ML UDC PO SCH (09:05)
--- NOTE | 2018-09-01 10:01 | PN ---
Progress Note - Progress Note Date of Service: 09/01/18 SOAP: Subjective: Pt seen at bedside. Pt states she feels a little "loopy" after taking percocet this AM. Minimal complaint of pain. Denies CP, SOB, F/C. Vital Signs: Temp Pulse Resp BP Pulse Ox 97.6 F 75 18 171/86 98 09/01/18 07:29 09/01/18 07:29 09/01/18 08:00 09/01/18 07:29 09/01/18 07:29 Laboratory Last Values Hgb 12.2 g/dL (12.0-16.0) 09/01/18 05:26 Hct 36 % (33-41) 09/01/18 05:26 Plt Count 158 10^3/uL (150-450) 09/01/18 05:26 MPV 9.3 fL (7.4-10.4) 09/01/18 05:26 Sodium 139 mmol/L (135-145) 08/31/18 05:40 Potassium 3.4 mmol/L (3.5-5.0) L 08/31/18 05:40 Chloride 106 mmol/L (101-111) 08/31/18 05:40 Carbon Dioxide 28 mmol/L (22-32) 08/31/18 05:40 Anion Gap 5 mmol/L (2-11) 08/31/18 05:40 BUN 16 mg/dL (6-24) 08/31/18 05:40 Creatinine 0.66 mg/dL (0.51-0.95) 08/31/18 05:40 Est GFR ( Amer) 113.4 (>60) 08/31/18 05:40 Est GFR (Non-Af Amer) 93.7 (>60) 08/31/18 05:40 BUN/Creatinine Ratio 24.2 (8-20) H 08/31/18 05:40 Glucose 166 mg/dL (70-100) H 08/31/18 05:40 POC Glucose (mg/dL) 123 mg/dL (70-100) H 08/30/18 07:08 Calcium 8.9 mg/dL (8.6-10.3) 08/31/18 05:40 Objective: Alert and awake, NAD, Calves soft and nontender, Dressing changed, incision C/D /I, NVI distally Assessment: 53 yo female s/p left TKA POD #2 Plan: OOB, PT/OT WBAT Pain control DVT prophylaxis - Eliquis 2.5mg BID D/C home today
[2018-09-01 13:36] VITALS: BP 151/80
[2018-09-01] MEDS: oxyCODONE TAB* 5 MG TAB PO PRN (14:46)
--- NOTE | 2018-09-02 22:02 | DS ---
DISCHARGE SUMMARY: DATE OF ADMISSION: 08/30/18 DATE OF DISCHARGE: 09/01/18 ATTENDING PHYSICIAN: Dr. Elaina Murray.* (DICTATED BY TERESA MOORE) PRINCIPAL DIAGNOSIS: Left knee osteoarthritis. SECONDARY DIAGNOSES: Past medical history of asthma, breast cancer, GERD, hypertension, depression, anxiety, thyroid goiter. PRINCIPAL PROCEDURE: Left total knee arthroplasty. REASON FOR HOSPITALIZATION: Ms. Connolly is a 53-year-old female with persistent complaints of left knee pain due to end-stage osteoarthritis. She has failed conservative treatment and elected to proceed with left total knee arthroplasty with Dr. Murray on 08/30/18. HOSPITAL COURSE: The patient was admitted to [facility] on 08/30/18 for anticipated left total knee arthroplasty with Dr. Murray. She underwent surgery without any complications. She was transferred to the recovery room and subsequently the surgical stay unit in a stable condition. She participated in physical therapy and occupational therapy throughout the hospital course. She had done well with her therapy. She has had pain control with oxycodone, although this made her dizzy and she was switched to tramadol for pain management. DVT prophylaxis with Eliquis 2.5 mg b.i.d. Her vital signs have remained stable throughout the hospital course including remaining afebrile. Daily hematocrit and hemoglobin were carried out. Hemoglobin was 12.2 and hematocrit 36 on the day of discharge. She has been weightbearing as tolerated on the left lower extremity. She has had no other complication or events during her hospital stay and was discharged on 09/01/18 in a stable condition. DISCHARGE INSTRUCTIONS: Weightbearing as tolerated. Wound care. Okay to shower on postop day #3. No bathing, swimming, submerging wound. Use gentle soap, pat dry, cover it with gauze, Trent wrap or tape. Call orthopedic office for increased drainage or redness, increased pain or fever. Go to the ER with shortness of breath or chest pain. Diet: Regular diet. Increase fluids and fiber to prevent constipation. Continue to use stool softeners. Call office if no bowel motion within 48 hours. Continue physical therapy and occupational therapy. Exercises as shown. Visiting home nurse to do wound checks. DVT prophylaxis: Eliquis 2.5 mg twice daily for 1 month. Pain control: Tramadol 50 mg 1 to 2 tablets every 4 to 6 hours as needed for pain, maximum 10 tabs per day. Antibiotics as required for any dental work. Follow up with Dr. Murray within 10 to 14 days. Call for an appointment. Please call our office with any questions or concerns, . TERESA MOORE [id number]/[facility] #: [id number] DARBY
== END 2018-09-01 15:45 | disposition home or self-care (01) | DRG 470 ==
LOC: AA 06:45 → SSU 10:43
PROVIDERS: ADMIT Orthopaedic Surgery Adult Reconstructive Orthopaedic Surgery; ATTEND Orthopaedic Surgery Adult Reconstructive Orthopaedic Surgery
PROC: 0SRD069 Replacement of Left Knee Joint with Oxidized Zirconium on Polyethylene Synthetic Substitute, Cemented, Open Approach (ICD-10-PCS; principal; 2018-08-30 08:30)
DX: M17.12 Unilateral primary osteoarthritis, left knee (principal); K21.9 Gastro-esophageal reflux disease without esophagitis; I10 Essential (primary) hypertension; F32.9 Major depressive disorder, single episode, unspecified; F41.9 Anxiety disorder, unspecified; E04.9 Nontoxic goiter, unspecified; K57.90 Diverticulosis of intestine, part unspecified, without perforation or abscess without bleeding; J45.20 Mild intermittent asthma, uncomplicated; E78.5 Hyperlipidemia, unspecified; E11.9 Type 2 diabetes mellitus without complications; M25.462 Effusion, left knee; M23.8X2 Other internal derangements of left knee; G47.33 Obstructive sleep apnea (adult) (pediatric); M25.762 Osteophyte, left knee; I87.2 Venous insufficiency (chronic) (peripheral); Z85.3 Personal history of malignant neoplasm of breast; Z90.710 Acquired absence of both cervix and uterus; Z90.10 Acquired absence of unspecified breast and nipple; Z83.3 Family history of diabetes mellitus; Z82.49 Family history of ischemic heart disease and other diseases of the circulatory system; Z80.8 Family history of malignant neoplasm of other organs or systems; Z82.61 Family history of arthritis; Z83.49 Family history of other endocrine, nutritional and metabolic diseases; R42 Dizziness and giddiness
CPT/HCPCS: 36415; 71046; 80048; 85014; 85018; 85049; 93005; A9270-GY; C1776; J0360; J0690; J1100; J2250; J2405; J2704; J2795; J3010

== ENCOUNTER 2019-01-10 16:49 | Emergency (ER) | payer OTHER ==
--- NOTE | 2019-01-10 17:26 | UC ---
Complaint Female HPI - HPI Summary HPI Summary: 53 yo female presents with urinary symptoms. She tells me that today she developed mild left flank pain with urinary burning and frequency. She has had UTIs in the past and this feels similar. She has noticed some faint blood in her urine. Denies fever, chills, abdominal pain, n/v, or hx of kidney stone. - History Of Current Complaint Stated Complaint: URINARY Time Seen by Provider: 01/10/19 17:26 Hx Obtained From: Patient Onset/Duration: Sudden Onset Severity Initially: Mild Severity Currently: Mild Pain Intensity: 3 Pain Scale Used: 0-10 Numeric - Allergies/Home Medications Allergies/Adverse Reactions: Allergies Allergy/AdvReac Type Severity Reaction Status Date / Time No Known Drug Allergies Allergy See Comment Verified 01/10/19 17:33 ENVIRONMENTAL Allergy Intermediate Unknown Uncoded 01/10/19 17:33 Reaction Details ANIMALS Allergy Mild Unknown Uncoded 01/10/19 17:33 Reaction Details PMH/Surg Hx/FS Hx/Imm Hx Cardiovascular History: Hypertension Respiratory History: Asthma GI/ History: Gastroesophageal Reflux - Surgical History Surgical History: Yes Surgery Procedure, Year, and Place: PARTIAL HYSTERECTOMY 2006. RT MASTECTOMY 2010 POST CHEMO - Family History Known Family History: Positive: Non-Contributory - Social History Occupation: Employed Full-time Lives: With Family Alcohol Use: None Substance Use Type: None Smoking Status (MU): Never Smoked Tobacco Have You Smoked in the Last Year: No - Immunization History Most Recent Influenza Vaccination: 03/29 Most Recent Pneumonia Vaccination: 2009 Hx Tetanus, Diphtheria Vaccination: Yes Vaccination Up to Date: Yes Review of Systems All Other Systems Reviewed And Are Negative: Yes Constitutional: Positive: Negative Skin: Positive: Negative Respiratory: Positive: Negative Cardiovascular: Positive: Negative Gastrointestinal: Positive: Negative Genitourinary: Positive: Dysuria, Hematuria, Frequency Neurovascular: Positive: Negative Neurological: Positive: Negative Psychological: Positive: Negative Physical Exam - Summary Physical Exam Summary: GENERAL: NAD. WDWN. No pain distress. SKIN: No rashes, sores, lesions, or open wounds. NECK: Supple. Nontender. No lymphadenopathy. CHEST: CTAB. No r/r/w. No accessory muscle use. Breathing comfortably and in no distress. CV: RRR. Without m/r/g. Pulses intact. Cap refill <2seconds ABDOMEN: Soft. NTTP. Mild left CVA tenderness. Bowel sounds present NEURO: Alert. PSYCH: Age appropriate behavior. Triage Information Reviewed: Yes Vital Signs: Vital Signs: Temp Pulse Resp BP Pulse Ox 99.8 F 80 17 144/77 100 01/10/19 17:25 01/10/19 17:25 01/10/19 17:25 01/10/19 17:25 01/10/19 17:25 Vital Signs Reviewed: Yes Complaint Female Dx - Course Course Of Treatment: UA positive. Rx for macrobid. Will send urine for culture - Differential Dx/Diagnosis Provider Diagnosis: UTI (urinary tract infection) Discharge - Sign-Out/Discharge Documenting (check all that apply): Patient Departure All imaging exams completed and their final reports reviewed: No Studies - Discharge Plan Condition: Stable Disposition: HOME Prescriptions: Nitrofurantoin Monohyd/M-Cryst [Macrobid 100 mg Capsule] 100 mg PO BID #10 cap Patient Education Materials: Urinary Tract Infection in Women (DC) Referrals: Keo Hsu MD [Primary Care Provider] - Additional Instructions: If you develop a fever, shortness of breath, chest pain, new or worsening symptoms - please call your PCP or go to the ED immediately. Your blood pressure was slightly elevated at todays visit. Please see your primary provider within 4 weeks for recheck and re-evaluation. - Billing Disposition and Condition Condition: STABLE Disposition: Home
[2019-01-10 17:33] VITALS: BP 144/77
== END 2019-01-10 18:13 | disposition home or self-care (01) ==
LOC: UCEAST 16:49
DX: N39.0 Urinary tract infection, site not specified (principal); I10 Essential (primary) hypertension; K21.9 Gastro-esophageal reflux disease without esophagitis; J45.909 Unspecified asthma, uncomplicated
CPT/HCPCS: 81002; 87086; 99212; G0463